=== PATIENT | male | born 1960 | race Caucasian/White ===

== ENCOUNTER 2017-04-26 09:40 | Outpatient (CLI) | payer BC ==
--- NOTE | 2017-04-26 15:46 | RAD ---
RIGHT KNEE: 04/26/17 Three views. HISTORY: Knee replacement. Knee pain. There is a right knee prosthesis. The components appears in adequate position and alignment. No evide nce of loosening identified on plain film evaluation. There is no evidence of joint effusion. No frac ture or acute abnormality. IMPRESSION: Right knee prosthesis without evidence of acute abnormality. POS: [facility]
--- NOTE | 2017-04-26 15:48 | RAD ---
LEFT KNEE: 04/26/17 Three views. HISTORY: History of prior knee replacement. Knee pain. There is a left knee prosthesis. Components appear in adequate position and alignment. No evidence of loosening by plain film. No joint effusion. No fracture or acute abnormality. IMPRESSION: Left knee prosthesis without evidence of acute abnormality. POS: [facility]
--- NOTE | 2017-04-26 15:51 | NM ---
RADIONUCLIDE 3 PHASE BONE SCAN KNEES: Date: 04/26/17 HISTORY: Bilateral knee replacement. Pain. FINDINGS: Blood flow and pool images show symmetric uptake about the knees. Delayed images show heterogeneous u ptake at each knee, surrounding the hardware, most pronounced at the left patella. Prominent uptake involving the shoulders and right ankle are consistent with degenerative changes. IMPRESSION: 1. Bilateral knee prostheses without evidence of complication. 2. Prominent degenerative changes of shoulders and right ankle. POS: [facility]
== END 2017-04-26 09:41 | disposition home or self-care (01) ==
LOC: NM 09:40
PROVIDERS: ATTEND Specialist
DX: T84.84XA Pain due to internal orthopedic prosthetic devices, implants and grafts, initial encounter (principal); Z96.651 Presence of right artificial knee joint
CPT/HCPCS: 78315; A9503